=== PATIENT | female | born 1950 | race Caucasian/White ===

== ENCOUNTER 2020-01-23 14:40 | Outpatient (CLI) | payer OTHER, SELFPAY ==
--- NOTE | ~2020-01-23 | CT_ITS ---
EXAMINATION: CT lung screening DATE: 01/23/2020 16:19 INDICATION: Personal history of tobacco dependence, current smoker with 50 pack year history TECHNIQUE: Computed tomography (CT) of the chest was performed without intravenous contrast. The dose -length product (DLP) was 122.66 mGy-cm. Automated exposure control and iterative reconstruction tech Roamler were employed. COMPARISON: 12/31/2018 FINDINGS: No suspicious pulmonary nodules are identified. There is mild emphysema. The lungs are free of acute opacities. There is chronic mild atelectasis of the right middle lobe and lingula. No patho logically enlarged thoracic lymph nodes are identified. The heart size is normal. There is moderate t horacic spondylosis. Again noted are partially imaged cyst of the kidneys, measuring up to 10 cm on t he right. IMPRESSION: 1. Lung-RADS category 1: Negative. Continue annual screening with noncontrast low-dose chest CT in 12 months. Reviewed, dictated and finalized at location A. IMPRESSION: 1. Lung-RADS category 1: Negative. Continue annual screening with noncontrast l ow-dose chest CT in 12 months.
== END 2020-01-23 14:41 | disposition home or self-care (01) ==
LOC: ANHIMG 14:44
PROVIDERS: PCP Internal Medicine; Visit Provider Internal Medicine
DX: Z12.2 Encounter for screening for malignant neoplasm of respiratory organs (principal); Z87.891 Personal history of nicotine dependence
CPT/HCPCS: G0297

== ENCOUNTER 2020-06-09 09:51 | Observation (INO) | payer OTHER, SELFPAY ==
--- NOTE | ~2020-06-09 | CT_ITS ---
EXAMINATION: CTA brain carotid EXAM DATE: 06/09/2020 14:01 INDICATION: Sudden onset dizziness, right-sided hemiparesis. TECHNIQUE: Spiral CTA of the carotid arteries was performed with intravenous injection 100 cc of Om nipaque 350. Axial, coronal, sagittal reformatted images reviewed. Additional reformatted images cre ated on dedicated 3-D workstation. NASCET comparable standard used to assess the degree of arterial stenosis. Spiral CT angiogram cerebral arteries performed with the same intravenous injection of con trast. Source images of the brain CTA transferred to dedicated workstation for 3-D rotational image c reation. Coronal, sagittal maximum intensity pixel images also reviewed. The dose-length product (D LP) for this examination was 954.18 mGy-cm. The exposure was tailored according to patient size, an d iterative reconstruction (ASIR) was used as additional dose reduction technique. Correlation is mad e to head CT earlier same day. FINDINGS: There is mild bilateral carotid plaque with 0% stenosis bilaterally. There is bilateral car otid tortuosity, with kinking of both carotid arteries. There is mild to moderate scattered bilateral carotid siphon arterial sclerosis without stenosis. The vertebral arteries are codominant. Transvers e sinus arachnoid granulations. There is no carotid or vertebral basilar arterial dissection or fibr omuscular dysplasia. There are no cerebral artery aneurysms. There is symmetric cerebral artery arbor ization. The sagittal, transverse and sigmoid sinuses enhance normally, no venous sinus thrombosis. I nternal cerebral veins also enhance normally. Moderate lower cervical disc disease. Lung apices clear . IMPRESSION: 1. Scattered carotid plaque, 0% stenosis bilaterally. 2. Internal carotid artery tortuosity, kinking bilaterally. 3. No acute findings. Reviewed, dictated and finalized at location B.
--- NOTE | ~2020-06-09 | MR_ITS ---
EXAMINATION: MR brain/brain stem wo/w con DATE: 06/09/2020 16:15 INDICATION: Right-sided weakness/dizziness. TECHNIQUE: Magnetic resonance imaging (MRI) of the brain and brainstem was performed without and with 15 mL Multihance intravenous contrast. Sequences included sagittal and axial T1-weighted SE, axial d iffusion-weighted FS SE, axial T2*-weighted GRE, axial T2-weighted FLAIR, and axial T2-weighted FSE. Postcontrast axial and coronal T1-weighted SE was obtained. Apparent diffusion coefficient (ADC) maps were created. COMPARISON: Head CT and cerebral CT angiogram dated 06/09/2020 FINDINGS: There are no areas of restricted diffusion to suggest acute infarction. No intracranial hemorrhage or abnormal intracranial mass lesion. There are scattered areas of nonspecific increased T2-weighted si gnal intensity in the cerebral white matter, predominantly involving the deep and periventricular whi te matter. There are no intraparenchymal signal abnormalities seen on the other pulse sequences. Symm etric prominence of the sulci and subarachnoid spaces overlying the convexities consistent with mild age-appropriate diffuse cerebral volume loss. The ventricles are symmetric and normal in size. There are no abnormal extra-axial fluid collections. Flow voids are seen in the cerebral arteries on the T2 -weighted sequences consistent with their expected patency. Mucous retention cysts are seen at the in ferior aspect of the bilateral maxillary sinuses. Visualized orbits and soft tissues are unremarkable . There are no areas of abnormal enhancement on the post contrast images. IMPRESSION: 1. No acute intracranial process or abnormally enhancing brain lesions. 2. Age-related changes including mild diffuse volume loss and moderate scattered nonspecific perivent ricular predominant white matter T2 hyperintensity consistent with chronic small vessel ischemic dise ase. Reviewed, dictated and finalized at location A. IMPRESSION: 1. No acute intracranial process or abnormally enhancing brain lesions. 2. Age-related changes including mild diffuse volume loss and moderate scattere d nonspecific periventricular predominant white matter T2 hyperintensity consis tent with chronic small vessel ischemic disease.
--- NOTE | ~2020-06-09 | XR_ITS ---
XR chest 1V DATE: 06/09/2020 10:34 INDICATION: Dizziness. Right-sided weakness. TECHNIQUE: AP chest COMPARISON: 01/23/2020 CT lung screening 01/29/2019 2 view chest FINDINGS: Heart size There is aortic calcification, ectasia and unfolding. No hilar or mediastinal enlargement. No pulmonary infiltrate or consolidation, pleural effusion or pulmonary vascular congestion or pneumo thorax. IMPRESSION: No active pulmonary disease Reviewed, dictated and finalized at location A. IMPRESSION: No active pulmonary disease
--- NOTE | ~2020-06-09 | CT_ITS ---
EXAMINATION: CT brain wo con EXAM DATE: 06/09/2020 10:34 INDICATION: Dizziness. TECHNIQUE: Spiral CT of the head was performed without contrast. Axial, coronal and sagittal images were reviewed. The dose-length product (DLP) for this examination was 605.33 mGy-cm. The exposure w as tailored according to patient size, and iterative reconstruction (ASIR) was used as additional dos e reduction technique. There is no prior study for comparison. FINDINGS: There is no acute intraparenchymal hemorrhage. No evidence of intraparenchymal brain mass lesion. No evidence of acute infarction. Please note that initial head CT has limited sensitivity f or small or acute infarctions. There is moderate periventricular and subcortical hypodensity, nonspec ific but probably related to small vessel ischemic disease. There is moderate prominence of the sul ci and ventricles related to cerebral atrophy. There is intracranial carotid arteriosclerosis. The re are no extra-axial collections. There is no mass effect or midline shift. The orbits are unremar kable. Soft tissue is unremarkable. The visualized sinuses and mastoid air cells are well aerated. IMPRESSION: 1. No acute intracranial findings. 2. Chronic age related findings. Reviewed, dictated and finalized at location B.
--- NOTE | 2020-06-09 09:52 | ECG_ITS ---
Measurements Intervals [place] Rate: 91 P: 40 OR: 213 QRS: 27 QRSD: 81 T: 29 QT: 360 QTc: 444 Interpretive Statements SINUS RHYTHM WITH FIRST DEGREE AV BLOCK DELAYED PRECORDIAL R/S TRANSITION MINIMAL Q WAVES- LATERAL LEADS INFERIOR INFARCT, AGE INDETERMINATE ABNORMAL ECG Electronically Signed On 06-09-2020 10:41:28 CDT by Robi Rg D.O.
--- NOTE | 2020-06-09 09:55 | ED.DIZZY ---
HPI - Dizziness General Chief Complaint: Dizziness Stated Complaint: SUDDEN ONSET DIZZINESS Time Seen by Provider: 06/09/20 09:55 Source: patient Mode of arrival: ambulatory Limitations: no limitations History of Present Illness HPI Narrative: Patient is a 69-year-old female with a history of hypertension, mild COPD, who presents for evaluation of acute onset dizziness, mild right-sided weakness. Patient states that she was in the kitchen, made a sudden turning motion and had acute onset of dizziness. Patient states she had a short sensation that the room was spinning, but then felt as if her right arm was tingling, and had some mild weakness in her right leg. Patient has been ambulatory. She states dizziness is somewhat improved. She denies vision changes, headache or neck pain. No chest pain, cough or shortness of breath. Patient has been having quarantining since November, they do not leave the house even to get groceries, states these are delivered to them. No recent fever, cough or cold or illnesses. No recent sick contacts. Patient does not have a history of a stroke. She is compliant with her antihypertensives. She does smoke. She does also follow with Dr. Tate, phlebotomy for polycythemia. Related Data Allergies Allergy/AdvReac Type Severity Reaction Status Date / Time codeine Allergy Unknown Other Verified 06/01/20 12:49 Review of Systems Review of Systems: Narrative: CONSTITUTIONAL: Denies fever, chills, or sweats. EYES: Denies visual changes ENT: Denies rhinorrhea, congestion, sore throat, or otalgia. CARDIOVASCULAR: Denies chest pain, palpitations, or edema. RESPIRATORY: Denies cough or dyspnea. GASTROINTESTINAL: Denies abdominal pain, nausea, vomiting, or diarrhea. GENITOURINARY: Denies dysuria or hematuria. SKIN: Denies rash or itching. MUSCULOSKELETAL: Denies back pain, joint pain, or myalgia. NEUROLOGIC: Denies headache, reports tingling of the right upper extremity, mostly resolved, reports feeling mildly weak in the right lower leg. No severe dizziness currently. PMF Past Medical History Medical History Anxiety Cardiac murmur Chronic bronchitis Erythrocytosis Essential (primary) hypertension Mitral valve disorder Nocturnal hypoxemia Polycythemia Tobacco use Social History Social History Smoking status: Current every day smoker Alcohol intake: current Exam Narrative: Exam Narrative: GENERAL: Awake, alert, conversant HEAD: Normocephalic, atraumatic. EYES: PERRLA and EOMI. ENT: Nares clear, no rhinorrhea or epistaxis. Mucous membranes moist. NECK: Supple. CHEST: No respiratory distress, breathing even and non labored HEART: Regular rate, sinus rhythm ABDOMEN:Non distended, non tender EXTREMITIES: Normal range of motion. No edema. SKIN: Warm, dry, no rash. NEURO:No focal deficits. Alert and oriented x3. Finger to nose intact bilaterally. EOMs intact without nystagmus. No facial droop/asymmetry noted bilaterally. Grimace intact. Intact sensation in face. Hearing intact bilaterally. Shoulder shrug intact. Strength 5/5 bilateral upper extremities. Strength 5/5 bilateral lower extremities. Reflexes 2+ patellar. Heel to cordova intact bilaterally. Ambulatory with a narrow base, steady gait, mild drifting to the right. Course Vital Signs Vital signs: Vital Signs Temperature 36.6 C 06/09/20 09:58 Pulse Rate 93 06/09/20 09:58 Respiratory Rate 16 06/09/20 09:58 Blood Pressure 163/95 H 06/09/20 09:58 Pulse Oximetry 96 06/09/20 09:58 Temperature 36.6 C 06/09/20 09:58 Pulse Rate 93 06/09/20 09:58 Respiratory Rate 16 06/09/20 09:58 Blood Pressure 163/95 H 06/09/20 09:58 Pulse Oximetry 96 06/09/20 09:58 MDM - Dizziness MDM Narrative Medical decision making narrative: Patient presented for evaluation dizziness, slight tingling in right arm and slight right lower leg weakness. Patient is ambulatory without an
[2020-06-09 09:58] VITALS: BP 163/95; PULSE 93; RESP 16; TEMP 36.6; O2SAT 96
[2020-06-09 10:14] LABS: Basophils Percent Auto 0.5 % (0.2-1.2); Hematocrit 52.2 % (37.0-47.0); Hemoglobin 17.6 g/dL (12.0-15.0); Immature Granulocyte Absolute 0.01 K/mm3 (0.00-0.031); Immature Granulocyte Percent A 0.2 % (0-0.5); Lymphocytes Percent Auto 32.1 % (18.3-44.2); Mean Corpuscular HGB Conc 33.7 g/dl (32-36); Mean Corpuscular Hemoglobin 32.6 pg (26-34); Mean Corpuscular Volume 96.7 fl (80-100); Mean Platelet Volume 9.8 fl (7.4-10.4); Monocytes Absolute Auto 0.4 K/mm3 (0.1-0.6); Monocytes Percent Auto 9.9 % (2.6-8.5); Neutrophils Absolute Auto 2.5 K/mm3 (1.3-6.7); Neutrophils Percent Auto 57.3 % (45.5-73.1); Platelet Count Result 149 k/mm3 (150-375); Red Cell Distribution Width 13.9 % (11.5-14.5); White Blood Count 4.4 K/mm3 (4.5-10.0)
--- NOTE | 2020-06-09 10:17 | PC.NURSE ---
pt ambulatory to bathroom with assistance of . no veering of gait noted. states is some better than at home.
[2020-06-09] MEDS: SODIUM CHLORIDE 0.9% IV 1,000 ML 999 ML IV CONT (10:19)
[2020-06-09 10:31] LABS: Alanine Aminotransferase 25 U/L (4-35); Albumin Level 5.1 g/dL (3.5-5.1); Alkaline Phosphatase 117 U/L (38-126); Anion Gap 13 mmol/L (8-16); Aspartate Amino Transferase 33 U/L (14-36); Bilirubin,Total 0.8 mg/dL (0.2-1.3); Blood Urea Nitrogen 13 mg/dL (7-17); Calcium 10.6 mg/dL (8.4-10.2); Carbon Dioxide 29 mmol/L (22-30); Chloride 102 mmol/L (98-107); Estimated CRCL calculation 53 ml/min; Estimated Glomerular Filt Rate > 60; Glucose 123 mg/dL (65-105); Sodium 144 mmol/L (137-145)
[2020-06-09 10:32] LABS: Add Urine Microscopic? NO; Appearance Urine Clear (Clear); Bilirubin Urine Negative (Negative); Blood Urine Negative (Negative); Color Urine Yellow (Yellow); Glucose Urine UA Negative (Negative); Ketones Urine Negative (Negative); Leukocyte Esterase Ur Negative LEU/UL (Negative); Nitrate Urine Negative (Negative); Protein Urine Negative (Negative); Specific Grav Ur 1.009 (1.001-1.035); Urobilinogen Urine Negative mg/dL (<2.0)
[2020-06-09 10:32] LABS: Prothrombin Time 12.5 Seconds (11.1-14.7)
[2020-06-09 10:33] LABS: Partial Thromboplastin Time 30.1 SECONDS (22.3-36.8)
[2020-06-09] MEDS: MECLIZINE HCL 25 MG TABLET PO (10:39)
[2020-06-09 10:43] LABS: Troponin I < 0.012 ng/mL (0.000-0.034)
--- NOTE | 2020-06-09 14:10 | ADMGEN ---
This patient, Kvng Sanabria, was admitted to Medical Room 341-01. Patient/family oriented to hospital policies and general routines including ID bracelet, bed and alarms, visiting hours, pain management, procedures, bathroom and other care routines, personal items, smoking policy, room service/diet, and visiting hours. Valuables list has been completed. Information on how to activate the Rapid Response Team has been discussed. Patient/Family are encouraged to report perceived risks to care and to ask questions if they do not understand what they are told or what they should do.
[2020-06-09 14:17] VITALS: BP 126/68; PULSE 62; RESP 16; TEMP 37; O2SAT 98; BMI 28.5
[2020-06-09 17:48] VITALS: PULSE 60
[2020-06-09 19:52] VITALS: BP 126/72; PULSE 57; RESP 16; TEMP 37.2; O2SAT 97
[2020-06-09 20:00] VITALS: PULSE 57
--- NOTE | 2020-06-09 20:30 | PM.IMHP ---
H&P: HPI History of Present Illness Date/Time: 06/09/20 20:30 Chief complaint: Dizziness/right sided weakness/TIA Narrative: Kvng Sanabria is shabnam pleasant 69-year-old female smoker with history of what sounds like AVNRT, secondary polycythemia, chronic bronchitis, hypertension, and sleep apnea who presented to the emergency department earlier today from home for evaluation of dizziness. She was in her usual state of health when she woke this morning and went about her day. Not long prior to arrival, while standing indication drinking a cup of coffee, she developed sudden onset vertigo, with feelings as though she was being pushed or pulled to the right. She made her way into the living room using the slater and furniture to steady herself, and called her to come take her to the hospital. She also felt that perhaps her right leg felt a bit funny, but she cannot say for sure as she has residual paresthesias of her right lower leg since the spinal surgery many years ago. The vertigo seemed to be somewhat reproducible when turning her head to the right, but that is much improved after receiving meclizine in the emergency department. Additionally she reports feelings of irregular in racing heart, although she admits that she was feeling anxious due to the vertigo, and she goes on to say that given her history of AVNRT she will on occasion have episodes of pounding, racing heart. With further questioning she mentions occasional paresthesias throughout her face, but this does not seem to be new and is not a focal finding. She denies current headache, neck ache, auditory and visual changes, chest pain, pleuritic pain, current palpitations, nausea, vomiting, focal weakness, and sweats. Review of Systems Review of Systems: Narrative: Twelve systems were reviewed with pertinent positives and negatives as per HPI. No fever, chills, or sweats. No recent cold or flu-like symptoms. She denies sick contacts and recent travel. For many years she has had intermittent palpitations and racing heart, and was seen in the emergency department and was told that she had atrial fibrillation however after being evaluated by Dr. 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 She will have infrequent episodes of tachycardia that she is able to control with vagal maneuvers. No exertional chest pain, pleuritic pain, shortness of breath, or edema. Of note, she has secondary polycythemia and has therapeutic phlebotomy every 3 months, and is due for that at the end of June 2020. Mentions paresthesias of the left and 4th ring fingers which has been intermittent for quite some time. Except as documented, all other systems were reviewed and are negative. 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 Patient of Dr. Ovalles. Cardiac murmur Echocardiogram in August 2019 showed normal left ventricular systolic function, normal diastolic function, mild concentric left ventricular hypertrophy, ejection fraction of 65%, and mild mitral regurgitation. Chronic bronchitis Essential hypertension Obstructive sleep apnea Mild obstructive sleep apnea noted on sleep study on 05/07/2019. Secondary polycythemia Tobacco use Surgical History Surgical History History of discectomy L5-S1 diskectomy. History of salpingo-oophorectomy History of tonsillectomy History of tubal ligation Family History Family History Grandparent Hypertension Chronic obstructive pulmonary disease Dementia Father Chronic obstructive pulmonary disease Cancer Social History Social History (Updated 06/09/20 @ 21:55 by Nat Caceres PA-C) Social History: Surrogate decision maker: Servando Daniele, . Code status: Full code.
[2020-06-10] VITALS: PULSE 62
[2020-06-10 04:00] VITALS: PULSE 69
[2020-06-10 05:23] VITALS: BP 139/77; PULSE 76; RESP 16; TEMP 36.8; O2SAT 93
[2020-06-10 05:41] LABS: Basophils Percent Auto 0.2 % (0.2-1.2); Hematocrit 43.8 % (37.0-47.0); Hemoglobin 15.1 g/dL (12.0-15.0); Immature Granulocyte Absolute 0.02 K/mm3 (0.00-0.031); Immature Granulocyte Percent A 0.4 % (0-0.5); Lymphocytes Absolute Auto 1.52 K/mm3 (0.9-3.2); Mean Corpuscular HGB Conc 34.5 g/dl (32-36); Mean Corpuscular Volume 95.8 fl (80-100); Mean Platelet Volume 10.1 fl (7.4-10.4); Monocytes Absolute Auto 0.5 K/mm3 (0.1-0.6); Monocytes Percent Auto 9.7 % (2.6-8.5); Neutrophils Absolute Auto 3.2 K/mm3 (1.3-6.7); Neutrophils Percent Auto 60.7 % (45.5-73.1); Platelet Count Result 163 k/mm3 (150-375); Red Blood Count 4.57 M/mm3 (4.2-5.4); Red Cell Distribution Width 13.9 % (11.5-14.5); White Blood Count 5.2 K/mm3 (4.5-10.0)
[2020-06-10 05:58] LABS: Alanine Aminotransferase 17 U/L (4-35); Albumin Level 3.9 g/dL (3.5-5.1); Alkaline Phosphatase 73 U/L (38-126); Anion Gap 7 mmol/L (8-16); Aspartate Amino Transferase 24 U/L (14-36); Bilirubin,Total 0.6 mg/dL (0.2-1.3); Blood Urea Nitrogen 13 mg/dL (7-17); Calcium 9.2 mg/dL (8.4-10.2); Carbon Dioxide 28 mmol/L (22-30); Chloride 107 mmol/L (98-107); Cholesterol 150 mg/dL (0-200); Estimated CRCL calculation 53 ml/min; Estimated Glomerular Filt Rate > 60; Glucose 93 mg/dL (65-105); HDL Direct 41 mg/dL; Magnesium 2.1 mg/dL (1.6-2.3); Potassium 3.7 mmol/L (3.4-5.0); Sodium 142 mmol/L (137-145); Triglycerides 103 mg/dL (<150)
[2020-06-10 06:09] LABS: LDL Cholesterol Direct 94 mg/dL
[2020-06-10 07:34] LABS: Free T4 Free Thyroxine Reflex 1.07 ng/dL (0.78-2.19)
[2020-06-10 08:00] VITALS: PULSE 94
[2020-06-10] MEDS: CHOLECALCIFEROL 1,000 UNITS TABLET 5000 UNITS PO (08:32)
[2020-06-10] MEDS: ASCORBIC ACID 500 MG TABLET 1000 MG BY MOUTH (08:32)
[2020-06-10] MEDS: ASPIRIN 325 MG TABLET PO (08:32)
[2020-06-10] MEDS: VITAMIN B COMPLEX CAPSULE 1 CAP BY MOUTH (08:32)
[2020-06-10] MEDS: dilTIAZem HCL CD 180 MG CAP.ER.24H 360 MG BY MOUTH (08:33)
[2020-06-10 09:32] LABS: Folic Acid > 20.0 ng/mL (2.76->20)
[2020-06-10 12:00] VITALS: PULSE 87
[2020-06-10 12:02] LABS: Total Triiodothyronine (T3) 1.43 NG/ML (0.97-1.69)
--- NOTE | 2020-06-10 12:27 | WPDNEURCNPN ---
Assessment and Plan Assessment and plan (1) Essential hypertension: Code(s): I10 - Essential (primary) hypertension Status: Acute (2) Secondary polycythemia: Code(s): D75.1 - Secondary polycythemia Status: Acute (3) Dizziness: Code(s): R42 - Dizziness and giddiness Status: Acute Additional Plan continue with the medications such including aspirin Consult date: 06/10/20 Time Seen: 11:45 HPI: Kvng Sanabria is a 69 year old female admitted to the hospital with the ongoing complaint of right-sided weakness and dizziness in addition to the ongoing history of 1. Chronic bronchitis 2. Hypertension 3. Sleep apnea 4. Polycythemia not long before arrival while standing and drinking cup of coffee she developed sudden onset of vertigo and as if she was being pushed or pulled to the right side at the same time her right lower extremity felt somewhat funny mushy has also undergone spinal surgery many years ago and has been left with right lower extremity paresthesia her vertigo was improved by the time she was seen by the initial physician she does have ongoing history of anxiety AV ifeoma reentry tachycardia with cardiac murmur essential hypertension and obstructive sleep apnea in addition to polycythemia evaluation up until now reveals her to have fairly normal lab, MRI with the nonspecific chronic ischemic disease, negative CTA of the head and neck Review of Systems Review of Systems: All systems reviewed & are unremarkable except as noted in HPI and below PMFSH Past Medical History Medical History Anxiety AV ifeoma re-entry tachycardia On diltiazem for rate control. Patient of Dr. Ovalles. Cardiac murmur Echocardiogram in August 2019 showed normal left ventricular systolic function, normal diastolic function, mild concentric left ventricular hypertrophy, ejection fraction of 65%, and mild mitral regurgitation. Chronic bronchitis Essential hypertension Obstructive sleep apnea Mild obstructive sleep apnea noted on sleep study on 05/07/2019. Secondary polycythemia Tobacco use Surgical History Surgical History History of discectomy L5-S1 diskectomy. History of salpingo-oophorectomy History of tonsillectomy History of tubal ligation Family History Family History Grandparent Hypertension Chronic obstructive pulmonary disease Dementia Father Chronic obstructive pulmonary disease Cancer Social History Social History (Updated 06/09/20 @ 21:55 by Nat Caceres PA-C) Social History: Surrogate decision maker: Servando Sanabria, . Code status: Full code. Smoking packs per day: 1 Smoking cigarettes per day: 20.0 Years smoked: 45 Smoking pack-years: 45.00 Smoking status: Current every day smoker Tobacco type: cigarettes Additional smoking assessment comments: Smoked up to a pack of cigarettes per day, now smoking 1/4 a pack per day. Alcohol intake: never Substance use: never Additional living arrangements comments: Lives in [place] with her . Spiritual care concerns: No Meds Home Medications and Allergies Home Medications Medication Instructions Recorded Confirmed Type umeclidinium 62.5 mcg-vilanterol 1 inhalation INHALATION Q24H #60 12/10/19 06/09/20 Rx 25 mcg/actuation powdr for each inhalation alprazolam 0.25 mg tablet 0.25 mg PO BID PRN #60 tablet 04/15/20 06/09/20 Rx B Complex-Vitamin B12 1 tab-cap DAILY 06/09/20 06/09/20 History ascorbic acid (vitamin C) [Vitamin 1,000 mg DAILY 06/09/20 06/09/20 History C] aspirin 325 mg PO DAILY 06/09/20 06/09/20 History cholecalciferol (vitamin D3) 125 mcg PO DAILY 06/09/20 06/09/20 History [Vitamin D3] diltiazem HCl 360 mg DAILY 06/09/20 06/09/20 History Allergies Allergy/AdvReac Type Severity Reaction Status Date / Time codeine Allergy Unknown Othe
--- NOTE | 2020-06-10 12:30 | PM.DS ---
DS: Admitting Diagnosis Admitting Diagnosis Admitting Diagnosis: Dizziness/right sided weakness/TIA DS: Discharge Diagnosis Discharge Diagnosis (1) Multiple neurological symptoms: Code(s): R29.90 - Unspecified symptoms and signs involving the nervous system Status: Acute Assessment and Plan: Date of Admission 06/09/20 Date of Discharge/DOS 06/10/20 Ms. Sanabria is a 69yo F smoker with history of AVNRT, polycythemia, chronic bronchitis, hypertension and sleep apnea who presented to the ED for evaluation of dizziness. She described a sudden onset of dizziness not long prior to arrival, felt as if the room was spinning. She had trouble ambulating and used the furniture to help steady herself. brought her to ED with concern for stroke. Her dizziness improved in the ED after receiving meclizine. Workup including CTA head/neck and MRI brain were unremarkable and demonstrated no evidence of CVA, aneurysm, mass or other etiology to explain her symptoms. Differential includes benign paroxysmal positional vertigo and TIA. She also described that she has been having intermittent pins and needles sensation to JONNA face, only when she touches it. This is not a new symptom for her yet etiology remains unclear. She was evaluated by neurology and can follow up with Dr Pepper in the future if she desires. She follows with Dr Tate for polycythemia for therapeutic phlebotomy every 3 months. He was able to see her while she was admitted and she will keep her upcoming appointment with him in 2 weeks. Overall, her dizziness was resolved and she was feeling back at her baseline. She was hemodynamically stable for discharge 06/10/20 with instructions to follow up with PCP in 1 week. Consultations: - Neurology - Dr Pepper - Hematology - Dr Tate (2) Secondary polycythemia: Code(s): D75.1 - Secondary polycythemia Status: Acute (3) Essential hypertension: Code(s): I10 - Essential (primary) hypertension Status: Acute (4) Tobacco use: Code(s): Z72.0 - Tobacco use Status: Acute (5) Obstructive sleep apnea: Code(s): G47.33 - Obstructive sleep apnea (adult) (pediatric) Status: Acute (6) AV ifeoma re-entry tachycardia: Code(s): I47.1 - Supraventricular tachycardia Status: Acute Assessment and Plan: History of. No acute issues here. DS: Summary Time Spent with Patient Time attestation: Total time spent providing and/or coordinating discharge services: 35 minutes Exam Narrative: Exam Narrative: General: Female resting comfortably sitting up in bed in no acute distress. HEENT: Normocephalic, atraumatic. Wearing corrective lenses. PERRL, EOMI. Sclerae anicteric. Oral mucosa moist. Oropharynx clear. Respiratory: Lung clear to auscultation in all cavazos. Nonlabored breathing. Cardiovascular: Rate and rhythm regular. Soft systolic murmur heard over left sternal border. Gastrointestinal: Abdomen is soft, nontender, and nondistended with positive bowel sounds. Skin: Warm and dry. No rashes or lesions noted. Extremities: Peripheral pulses intact. No edema. Musculoskeletal: Diminished sensation with reported tingling of the ulnar side of the left 4th finger and left 5th finger with positive Tinel sign over the left ulnar nerve. Neurological: Alert and oriented x4. Cranial nerves 2-12 are grossly intact. Speech is clear. No facial asymmetry. No pronator drift. Normal [id number], [id number], and rapid alternating movements. Strength is 5/5 in upper and lower extremities. No gross focal deficits to casual conversation. Psychiatric: Pleasant and cooperative with normal mood and affect. Judgment and insight intact. DS: Data Data Completed and Pending Labs on day of discharge: Last Vital Signs Temp 98.2 F 06/10/20 05:23 Pulse 87 06/10/20 12:00 Resp 16 06/10/20 05:23 BP 139/77 06/10/20 05:23 Pulse Ox 93 06/10/20 05:23 ITS Impressio
--- NOTE | 2020-06-10 16:33 | PDONCCN ---
HPI - Date of Consult Date/Time: 06/10/20 16:33 Requesting Physician: Ana María Gloria MD Primary Care Provider: Partha Medina MD - Consult Narrative Reason for consult: Erythrocytosis. 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 She has been getting periodic phlebotomy done in the loss will blood me was on April 06, 2020. She came to the hospital with sudden onset of dizziness and vertigo. Brain MRI showed no acute intracranial process. She received meclizine the ER with improvement in the symptoms. Labs initially showed elevated hematocrit of 52 but the repeat labs showed normal hematocrit of 43%. She denies any chest pain. No more were typed when dizziness. Denies any bleeding or bruising. She continues to smoke. No other new complaints. Review of Systems - Review of Systems All systems reviewed & are unremarkable except as noted in HPI and [facility] Medical History: Medical History (This Medical Record has been edited. 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 Patient of Dr. Ovalles. Cardiac murmur Echocardiogram in August 2019 showed normal left ventricular systolic function, normal diastolic function, mild concentric left ventricular hypertrophy, ejection fraction of 65%, and mild mitral regurgitation. Chronic bronchitis Essential hypertension Obstructive sleep apnea Mild obstructive sleep apnea noted on sleep study on 05/07/2019. Secondary polycythemia Tobacco use Surgical History: Surgical History (Last Reviewed 06/09/20 @ 21:55 by Nat Caceres PA-C) History of discectomy L5-S1 diskectomy. History of salpingo-oophorectomy History of tonsillectomy History of tubal ligation Family History: Family History (Last Reviewed 06/09/20 @ 21:55 by Nat Caceres PA-C) Grandparent Hypertension Chronic obstructive pulmonary disease Dementia Father Chronic obstructive pulmonary disease Cancer - Social History Social History: Social History (Last Updated 06/09/20 @ 21:55 by Nat Caceres PA-C) Alcohol Use: Alcohol intake: never Substance Use: Substance use: never Others: Spiritual care concerns: No Smoking Status: Smoking status: Current every day smoker Tobacco type: cigarettes Smoking Pack-years: Smoking packs per day: 1 Smoking cigarettes per day: 20.0 Years smoked: 45 Smoking pack-years: 45.00 Comments: Additional smoking assessment comments: Smoked up to a pack of cigarettes per day, now smoking 1/4 a pack per day. Meds Home Medications Medication Instructions Recorded Confirmed Type umeclidinium 62.5 mcg-vilanterol 1 inhalation INHALATION Q24H #60 12/10/19 06/09/20 Rx 25 mcg/actuation powdr for each inhalation alprazolam 0.25 mg tablet 0.25 mg PO BID PRN #60 tablet 04/15/20 06/09/20 Rx B Complex-Vitamin B12 1 tab-cap DAILY 06/09/20 06/09/20 History ascorbic acid (vitamin C) [Vitamin 1,000 mg DAILY 06/09/20 06/09/20 History C] aspirin 325 mg PO DAILY 06/09/20 06/09/20 History cholecalciferol (vitamin D3) 125 mcg PO DAILY 06/09/20 06/09/20 History [Vitamin D3] diltiazem HCl 360 mg DAILY 06/09/20 06/09/20 History meclizine 12.5 mg PO QID PRN #30 tablet 06/10/20 Rx Allergies Allergy/AdvReac Type Severity Reaction Status Date / Time codeine Allergy Unknown Other Verified 06/01/20 12:49 Results - Labs CBC & Chem 7: 06/10/20 05:20 06/10/20 05:20 Labs: Short CBC 06/10/20 Range/Units 05:20 WBC 5.2 (4.5-10.0) K/mm3 Hgb 15.1 H (12.0-15.0) g/dL Hct 43.8 (37.0-47.0) % Plt Count 163 (150-375) k/mm3 BMP 06/10/20 05:20 Sodium 142 Potassium 3.7 Chloride 107 Carbon Dioxide 28 BUN 13 Creatinine 0.90 Glucose 93 Calcium 9.2 Liver Function 06/10/20 Range/Units 05:20 Total
== END 2020-06-10 13:24 | disposition home or self-care (01) ==
LOC: ANHED 12:38 → ANH3MED 13:50
PROVIDERS: Physician Assistant; Admitting Provider Family Medicine; Emergency Provider Emergency Medicine; PCP Internal Medicine; Visit Provider Family Medicine
DX: R42 Dizziness and giddiness (principal); I47.1 Supraventricular tachycardia; G81.91 Hemiplegia, unspecified affecting right dominant side; D75.1 Secondary polycythemia; F17.210 Nicotine dependence, cigarettes, uncomplicated; G47.33 Obstructive sleep apnea (adult) (pediatric); I10 Essential (primary) hypertension; J44.9 Chronic obstructive pulmonary disease, unspecified; R29.90 Unspecified symptoms and signs involving the nervous system
CPT/HCPCS: 36415; 70450; 70496; 70498; 70553; 71045; 80053; 80061; 81003; 82607; 82746; 82948; 83735; 84439; 84443; 84480; 84484; 85025; 85610; 85730; 93005; 96361; 96374; 99285; A9270; A9577; G0378; J0131; J2405; J7030; Q9967

== ENCOUNTER → 2020-12-08 10:17 | Outpatient (CLI) | payer OTHER, SELFPAY ==
--- NOTE | ~2020-12-08 | MM_ITS ---
EXAMINATION: MM screening [place] BI w vinayak HISTORY: Screening mammogram TECHNIQUE: Craniocaudal and mediolateral oblique 3-D tomosynthesis images were obtained and synthetic 2-D images were generated. CAD analysis was submitted and interpreted. COMPARISON: 02/08/2019, , 09/29/2016 bilateral digital screening mammogram examinations BREAST PARENCHYMAL COMPOSITION: The breasts are almost entirely fatty. FINDINGS: There is no evidence of suspicious mass, calcification, or architectural distortion to sugg est malignancy in either breast. There has been no suspicious interval change. IMPRESSION: 1. No mammographic evidence of malignancy. 2. Recommend routine screening mammography in one year. BI-RADS Category 1: Negative Reviewed, dictated and finalized at location A.
== END ==
PROVIDERS: PCP Internal Medicine; Visit Provider Obstetrics & Gynecology
DX: Z12.31 Encounter for screening mammogram for malignant neoplasm of breast (principal)
CPT/HCPCS: 77063; 77067

== ENCOUNTER 2021-02-11 14:36 | Outpatient (CLI) | payer OTHER, SELFPAY ==
--- NOTE | ~2021-02-11 | CT_ITS ---
EXAMINATION: CT lung screening DATE: 02/11/2021 14:59 INDICATION: History of tobacco dependence TECHNIQUE: Computed tomography (CT) of the chest was performed without intravenous contrast. The dose -length product was 134.82 mGy-cm. Automated exposure control and iterative reconstruction technique were employed. COMPARISON: CT dated 01/23/2020 FINDINGS: No significant pleural or pericardial effusion. There is atherosclerosis of the aorta and c oronary arteries. Heart size normal. There are multiple bilateral renal cysts.. No thoracic lymphaden opathy. Mild emphysema. No endobronchial lesions. There is right middle lobe atelectasis. No pulmonar y nodules or masses. Moderate thoracic spondylosis. No acute osseous abnormality. IMPRESSION: 1. Lung-RADS category 1: Negative. Continue annual screening with noncontrast low-dose chest CT in 12 months. Reviewed, dictated and finalized at location B. IMPRESSION: 1. Lung-RADS category 1: Negative. Continue annual screening with noncontrast l ow-dose chest CT in 12 months.
== END 2021-02-11 14:37 | disposition home or self-care (01) ==
PROVIDERS: PCP Internal Medicine; Visit Provider Internal Medicine
DX: Z87.891 Personal history of nicotine dependence (principal); M47.814 Spondylosis without myelopathy or radiculopathy, thoracic region
CPT/HCPCS: 71271

== ENCOUNTER → 2021-03-11 08:56 | Outpatient (CLI) | payer OTHER, SELFPAY ==
--- NOTE | ~2021-03-11 | MR_ITS ---
EXAMINATION: MR lumbar spine wo con DATE: 03/11/2021 09:45 INDICATION: Lumbar radiculopathy. TECHNIQUE: Magnetic resonance imaging (MRI) of the lumbar spine was performed without intravenous con trast. Sequences included sagittal T2-weighted FSE, sagittal T2-weighted FS FSE, sagittal T1-weighted FSE, and axial T2-weighted FSE. COMPARISON: None. FINDINGS: There is 21 degrees levoscoliosis of lumbar spine. There is 3 mm anterolisthesis of L4 on L 5 and L5 on S1. There is mild chronic anterior wedging of T11 and T12 vertebral bodies. There is zandra rely decreased disc height from T10-T11 through L5-S1 with endplate remodeling. The distal spinal cor d signal intensity is normal. The conus medullaris is at T12-L1. There are cysts in the kidneys measu ring up to 5.9 cm on the left. The following disc levels are specifically discussed: L1-L2: The disc is bulging. There is mild bilateral facet joint osteoarthritis. There is moderate rig ht and mild left neural foraminal stenosis. There is mild central canal stenosis. L2-L3: The disc is bulging and has an annular fissure. There is severe bilateral facet joint osteoart hritis. There is severe right and moderate left neural foraminal stenosis. There is mild central williams l stenosis. L3-L4: The disc is bulging and has an annular fissure. There is severe bilateral facet joint osteoart hritis. There is moderate bilateral neural foraminal stenosis. There is moderate central canal stenos is. L4-L5: The disc is bulging and has an annular fissure. There is severe bilateral facet joint osteoart hritis. There is mild right and moderate left neural foraminal stenosis. There is mild central canal stenosis. There is asymmetric stenosis of left lateral recess. L5-S1: The disc does not extend beyond the endplate margin. There is severe left facet joint osteoart hritis. There is mild bilateral neural foraminal stenosis. There is no central canal stenosis. IMPRESSION: 1. Severe lumbar spondylosis. 2. Lumbar levoscoliosis. Reviewed, dictated and finalized at location A.
--- NOTE | ~2021-03-11 | XR_ITS ---
EXAMINATION: XR hip BI 2V w AP pelvis EXAM DATE: 03/11/2021 09:21 INDICATION: Bilateral hip pain. Bilateral posterior, lateral and groin hip pain. Chronic after low ba ck surg in 1990. worse x 6 months. TECHNIQUE: Each hip imaged independently (separate right and also left hip) 'frog leg' and frontal p rojections for interpretation. Frontal projection pelvis. There is no prior study for comparison. FINDINGS: No radiographic evidence of hip avascular necrosis. There is mild to moderate symmetric bi lateral hip primary osteoarthritis. There are no acute fractures or dislocations identified. There i s no subcutaneous gas. The soft tissue is unremarkable. There are no radiopaque foreign bodies. A dvanced lower lumbar spondylosis. IMPRESSION: Mild to moderate bilateral hip osteoarthritis. Reviewed, dictated and finalized at location B.
== END ==
PROVIDERS: PCP Internal Medicine; Visit Provider Nurse Practitioner Adult Health
DX: M47.817 Spondylosis without myelopathy or radiculopathy, lumbosacral region (principal); M48.07 Spinal stenosis, lumbosacral region
CPT/HCPCS: 72148; 73521

== ENCOUNTER → 2021-08-19 11:14 | Outpatient (CLI) | payer OTHER, SELFPAY ==
--- NOTE | ~2021-08-19 | XR_ITS ---
EXAMINATION: XR foot LT min 3V EXAM DATE: 08/19/2021 11:28 INDICATION: Left foot pain. TECHNIQUE: Left foot dorsoplantar, lateral and oblique projections obtained and reviewed. There is n o prior study for comparison. FINDINGS: Left metatarsal bones unremarkable. There are no bony erosions identified. Small inferior and posterior calcaneal spurs. Small amount of plantar fascial calcification. There is mild 1st meta tarsophalangeal joint primary osteoarthritis. Moderate hallux valgus. IMPRESSION: Left 1st MTP osteoarthritis, hallux valgus. Calcaneal spurs. Reviewed, dictated and finalized at location B. R LINEMAN
== END ==
PROVIDERS: PCP Internal Medicine; Visit Provider Internal Medicine
DX: M19.072 Primary osteoarthritis, left ankle and foot (principal); M21.072 Valgus deformity, not elsewhere classified, left ankle; M77.32 Calcaneal spur, left foot
CPT/HCPCS: 73630

== ENCOUNTER 2021-12-22 07:08 | Outpatient (CLI) | payer OTHER, SELFPAY ==
--- NOTE | ~2021-12-22 | US_ITS ---
EXAMINATION: US abdomen complete DATE: 12/22/2021 09:08 INDICATION: Intermittent abdominal pain and vomiting TECHNIQUE: Multiple grayscale and Doppler ultrasound images of the abdomen were obtained. COMPARISON: None FINDINGS: Increased echogenicity of the pancreas consistent with fatty atrophy as seen on prior CT of the chest dated 02/11/2021. Liver has normal echogenicity and contour, with a smooth surface. No liver lesion identified. No intrahepatic biliary duct dilation suspected. Portal venous flow was seen in the hepat opetal, normal direction and has normal Doppler waveform. The visualized proximal to mid inferior alda a cava is normal. Normal caliber abdominal aorta with small amount of nonhemodynamically significant atherosclerotic plaque. The gallbladder is normal in appearance. There is no cholelithiasis. The com mon bile duct measures 5 mm, which is normal. Sonographic Rascon sign was reported as negative by the bill of lading clerk. There is normal renal contour and echogenicity bilaterally. The right kidney measures c m and the left cm. There are multiple bilateral anechoic renal cysts, the largest measuring 8.4 cm on the right and 6.5 cm on the left. There is no hydronephrosis. Spleen is normal measuring 9.8 cm in m aximal length. IMPRESSION: 1. Fatty atrophy of the pancreas. 2. Multiple bilateral renal cysts. Reviewed, dictated and finalized at location A.
== END 2021-12-22 07:09 | disposition home or self-care (01) ==
LOC: ANHIMG 07:14
PROVIDERS: PCP Internal Medicine; Visit Provider Internal Medicine
DX: R10.9 Unspecified abdominal pain (principal); N28.1 Cyst of kidney, acquired; K86.89 Other specified diseases of pancreas
CPT/HCPCS: 76700

== ENCOUNTER 2022-01-25 00:44 | Day surgery (SDC) | payer OTHER, SELFPAY ==
[2022-01-12 10:43] VITALS: BMI 27.6
[2022-01-25 08:09] VITALS: BP 153/83; PULSE 97; RESP 16; TEMP 36.5; O2SAT 98
[2022-01-25] MEDS: LACTATED RINGERS 1,000 ML 150 ML IV CONT (08:17)
--- NOTE | 2022-01-25 08:47 | WPDANESEPPF ---
Anes - Initial Pre Proc Eval Procedure: Operation Date: 01/25/22 09:30 Proposed Procedures p Esophagogastroduodenoscopy - Ghanshyam Solis MD Date/Time: 01/25/22 08:47 Surgeon: Ghanshyam Solis MD Pre Op Diagnosis: GERD Patient Data Age: 71 Gender: F Height: 1.63 m Weight: 72.3 kg Last Vital Signs Temp 36.5 C 01/25/22 08:09 Pulse 97 01/25/22 08:09 Resp 16 01/25/22 08:09 BP 153/83 H 01/25/22 08:09 Pulse Ox 98 01/25/22 08:09 O2 Del Method Room Air 01/25/22 08:09 Allergies Allergy/AdvReac Type Severity Reaction Status Date / Time codeine Allergy Unknown Other Verified 01/25/22 08:09 Home Medications Medication Instructions Recorded Confirmed Type B Complex-Vitamin B12 1 tab-cap DAILY 06/09/20 01/25/22 History ascorbic acid (vitamin C) 1,000 mg 1,000 mg DAILY 06/09/20 01/25/22 History tablet (Vitamin C) cholecalciferol (vitamin D3) 125 125 mcg PO DAILY 06/09/20 01/25/22 History mcg (5,000 unit) tablet (Vitamin D3) aspirin 81 mg tablet,delayed 81 mg PO DAILY #1 tablet 08/07/20 01/25/22 Rx release cyclobenzaprine 5 mg tablet 5 mg PO TID PRN muscle spasm #30 08/19/21 01/25/22 Rx tabs gabapentin 100 mg capsule 100 mg PO QHS #30 caps 08/19/21 01/25/22 Rx umeclidinium 62.5 mcg-vilanterol See Rx Instructions .Route 08/19/21 01/25/22 Rx 25 mcg/actuation powdr for .COMPLEX ##60 inhalation (Anoro Ellipta) omeprazole 40 mg capsule,delayed 40 mg PO DAILY #90 caps 12/10/21 01/25/22 Rx release sertraline 25 mg tablet (Zoloft) 25 mg PO DAILY #30 tabs 12/10/21 01/25/22 Rx alprazolam 0.25 mg tablet 0.25 mg PO DAILY PRN anxiety #30 01/14/22 01/25/22 Rx tabs diltiazem HCl 360 mg capsule,24 See Rx Instructions .Route 01/14/22 01/25/22 Rx hr,extended release (Tiadylt ER) .COMPLEX #90 caps rosuvastatin 10 mg tablet See Rx Instructions .Route 01/14/22 01/25/22 Rx .COMPLEX #90 tabs Patient hx anesthesia problems: none Family hx anesthesia problems: none Results Review: All pre-operative results and documents have been reviewed as part of the pre-operative evaluation. 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 Patient of Dr. Ovalles. Cardiac murmur Echocardiogram in August 2019 showed normal left ventricular systolic function, normal diastolic function, mild concentric left ventricular hypertrophy, ejection fraction of 65%, and mild mitral regurgitation. Chronic bronchitis Essential hypertension Obstructive sleep apnea Mild obstructive sleep apnea noted on sleep study on 05/07/2019. Obstructive sleep apnea Secondary polycythemia Tobacco use Surgical History Surgical History History of discectomy L5-S1 diskectomy. History of salpingo-oophorectomy History of tonsillectomy History of tubal ligation Family History Family History Grandparent Hypertension Chronic obstructive pulmonary disease Dementia Father Chronic obstructive pulmonary disease Cancer Social History Social History Social History: Surrogate decision maker: Servando Sanabria, . Code status: Full code. Smoking packs per day: 0.5 Smoking cigarettes per day: 10.0 Years smoked: 30 Smoking pack-years: 15.00 Smoking status: Current every day smoker Tobacco type: cigarettes Second hand tobacco smoke exposure: Yes Additional smoking assessment comments: Smoked up to a pack of cigarettes per day, now smoking 1/4 a pack per day. Alcohol intake: never Alcohol use details: social Substance use: never Substance use type: does not use Living arrangements: with family Additional living arrangements comments: Lives in [place] with her . Spiritual care concerns: No Anes - Eval Final PreProcedure Day of Proce
--- NOTE | 2022-01-25 09:13 | WPDGICN ---
Assessment and Plan Assessment and plan (1) Vomiting: Code(s): R11.10 - Vomiting, unspecified Status: Acute Assessment and Plan: Patient complains of recurrent vomiting episodes that occur less than once a month these appear brief. Not related to specific dietary intake. EGD is requested will be reperformed today would recommend patient keep a dietary diary. Consider medications as possible contributing factor. Further recommendations may be given after endoscopy. GI Consult Note Consult date/time: 01/25/22 09:13 HPI: Kvng Sanabria is a 71 year old female Presents for EGD. Patient reports for several years has had intermittent vomiting. She states this occurs out of the blue. Not related to any particular dietary intake. It will occur less than 1 time a month. She states she will feel fine prior to this and will feel better after this occurs. She has had no bleeding. No weight loss. She denies abdominal pain. She does report irregular bowel movements and some bloating. Previously advised to try fiber supplements she has not yet implemented this. Recent gallbladder ultrasound revealed no gallstones. There was question of fatty pancreas. patient reports that when she vomits it is typically mucus. She has tried omeprazole with no change in symptoms. Family history noncontributory. Review of Systems Review of Systems: Review of systems is noncontributory. 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 Patient of Dr. Ovalles. Cardiac murmur Echocardiogram in August 2019 showed normal left ventricular systolic function, normal diastolic function, mild concentric left ventricular hypertrophy, ejection fraction of 65%, and mild mitral regurgitation. Chronic bronchitis Essential hypertension Obstructive sleep apnea Mild obstructive sleep apnea noted on sleep study on 05/07/2019. Obstructive sleep apnea Secondary polycythemia Tobacco use Surgical History Surgical History History of discectomy L5-S1 diskectomy. History of salpingo-oophorectomy History of tonsillectomy History of tubal ligation Family History Family History Grandparent Hypertension Chronic obstructive pulmonary disease Dementia Father Chronic obstructive pulmonary disease Cancer Social History Social History Social History: Surrogate decision maker: Servando Sanabria, . Code status: Full code. Smoking packs per day: 0.5 Smoking cigarettes per day: 10.0 Years smoked: 30 Smoking pack-years: 15.00 Smoking status: Current every day smoker Tobacco type: cigarettes Second hand tobacco smoke exposure: Yes Additional smoking assessment comments: Smoked up to a pack of cigarettes per day, now smoking 1/4 a pack per day. Alcohol intake: never Alcohol use details: social Substance use: never Substance use type: does not use Living arrangements: with family Additional living arrangements comments: Lives in [place] with her . Spiritual care concerns: No Meds Home Medications and Allergies Home Medications Medication Instructions Recorded Confirmed Type B Complex-Vitamin B12 1 tab-cap DAILY 06/09/20 01/25/22 History ascorbic acid (vitamin C) 1,000 mg 1,000 mg DAILY 06/09/20 01/25/22 History tablet (Vitamin C) cholecalciferol (vitamin D3) 125 125 mcg PO DAILY 06/09/20 01/25/22 History mcg (5,000 unit) tablet (Vitamin D3) aspirin 81 mg tablet,delayed 81 mg PO DAILY #1 tablet 08/07/20 01/25/22 Rx release cyclobenzaprine 5 mg tablet 5 mg PO TID PRN muscle spasm #30 08/19/21 01/25/22 Rx tabs gabapentin 100 mg capsule 100 mg PO QHS #30 caps 08/19/21 01/25/22 Rx umeclidinium 62.5 mcg-vilanterol See Rx Instructions .Route 08/19
== END 2022-01-25 10:15 | disposition home or self-care (01) ==
PROVIDERS: PCP Internal Medicine; Visit Provider Internal Medicine Gastroenterology
PROC: 0DJ08ZZ Inspection of Upper Intestinal Tract, Via Natural or Artificial Opening Endoscopic (ICD-10-PCS; CPT 43235; principal; 2022-01-25 09:30)
DX: R11.10 Vomiting, unspecified (principal); K25.3 Acute gastric ulcer without hemorrhage or perforation; F41.9 Anxiety disorder, unspecified; R00.0 Tachycardia, unspecified; R01.1 Cardiac murmur, unspecified; I10 Essential (primary) hypertension; G47.33 Obstructive sleep apnea (adult) (pediatric); D75.1 Secondary polycythemia; F17.210 Nicotine dependence, cigarettes, uncomplicated; K21.9 Gastro-esophageal reflux disease without esophagitis; Z79.82 Long term (current) use of aspirin
CPT/HCPCS: 43239; 88305; 88342; J2704; J7120

== ENCOUNTER → 2022-03-04 12:55 | Outpatient (CLI) | payer OTHER, SELFPAY ==
--- NOTE | ~2022-03-04 | MM_ITS ---
EXAMINATION: MM screening [facility] BI w vinayak HISTORY: Screening TECHNIQUE: Craniocaudal and mediolateral oblique 3-D tomosynthesis images were obtained and synthetic 2-D images were generated. CAD analysis was submitted and interpreted. COMPARISON: Comparison to multiple prior studies sequentially, with oldest reviewed study dated 09/24. . BREAST PARENCHYMAL COMPOSITION: There are scattered areas of fibroglandular density. FINDINGS: There is no evidence of suspicious mass, calcification, or architectural distortion to sugg est malignancy in either breast. There has been no suspicious interval change. IMPRESSION: 1. No mammographic evidence of malignancy. 2. Recommend routine screening mammography in one year. BI-RADS Category 1: Negative Reviewed, dictated and finalized at location A.
== END ==
PROVIDERS: PCP Internal Medicine; Visit Provider Student in an Organized Health Care Education/Training Program
DX: Z12.31 Encounter for screening mammogram for malignant neoplasm of breast (principal)
CPT/HCPCS: 77063; 77067

== ENCOUNTER 2022-03-11 14:39 | Outpatient (CLI) | payer OTHER, SELFPAY ==
--- NOTE | ~2022-03-11 | CT_ITS ---
EXAMINATION: CT lung screening DATE: 03/11/2022 15:01 INDICATION: Personal history of nicotine dependence, current smoker with 30 pack year history TECHNIQUE: Computed tomography (CT) of the chest was performed without intravenous contrast. The dose -length product (DLP) was 98.05 mGy-cm. Automated exposure control and iterative reconstruction techn [employer] were employed. COMPARISON: 02/11/2021 FINDINGS: There is mild emphysema. No suspicious pulmonary nodules are identified. The lungs are free of acute opacities. No pleural effusion or pneumothorax. No pathologically enlarged thoracic lymph n odes are identified. The heart size is normal. Cysts of the kidneys measure up to 8.1 cm on the right . There is severe thoracic spondylosis. IMPRESSION: 1. Lung-RADS category 1: Negative. Continue annual screening with noncontrast low-dose chest CT in 12 months. Reviewed, dictated and finalized at location B. IMPRESSION: 1. Lung-RADS category 1: Negative. Continue annual screening with noncontrast l ow-dose chest CT in 12 months.
== END 2022-03-11 14:40 | disposition home or self-care (01) ==
PROVIDERS: PCP Internal Medicine; Visit Provider Internal Medicine
DX: Z12.2 Encounter for screening for malignant neoplasm of respiratory organs (principal); Z87.891 Personal history of nicotine dependence
CPT/HCPCS: 71271

== ENCOUNTER 2022-04-18 05:00 | Day surgery (SDC) | payer OTHER, SELFPAY ==
[2022-04-04 09:10] VITALS: BMI 26.6
--- NOTE | 2022-04-18 08:12 | WPDANESEPPF ---
Anes - Initial Pre Proc Eval Procedure: Operation Date: 04/18/22 10:00 Proposed Procedures p Esophagogastroduodenoscopy - Ghanshyam Solis MD Date/Time: 04/18/22 08:12 Surgeon: Ghanshyam Solis MD Pre Op Diagnosis: gastric ulcer Patient Data Age: 71 Gender: F Height: 1.63 m Weight: 70.5 kg Allergies Allergy/AdvReac Type Severity Reaction Status Date / Time codeine Allergy Unknown Other Verified 04/18/22 09:17 Home Medications Medication Instructions Recorded Confirmed Type B Complex-Vitamin B12 1 tab-cap PO DAILY 06/09/20 04/04/22 History ascorbic acid (vitamin C) 1,000 mg 1,000 mg DAILY 06/09/20 04/04/22 History tablet (Vitamin C) cholecalciferol (vitamin D3) 125 125 mcg PO DAILY 06/09/20 04/04/22 History mcg (5,000 unit) tablet (Vitamin D3) aspirin 81 mg tablet,delayed 81 mg PO DAILY #1 tablet 08/07/20 04/04/22 Rx release diltiazem HCl 360 mg capsule,24 See Rx Instructions .Route 01/14/22 04/04/22 Rx hr,extended release (Tiadylt ER) .COMPLEX #90 caps rosuvastatin 10 mg tablet See Rx Instructions .Route 01/14/22 04/04/22 Rx .COMPLEX #90 tabs omeprazole 40 mg capsule,delayed 40 mg PO BID #60 caps 01/25/22 04/04/22 Rx release alprazolam 0.25 mg tablet 0.25 mg PO BID PRN anxiety #60 tabs 02/25/22 04/04/22 Rx sertraline 25 mg tablet (Zoloft) 25 mg PO DAILY #30 tabs 03/08/22 04/04/22 Rx cyclobenzaprine 5 mg tablet 5 mg PO TID PRN muscle spasm #30 03/25/22 04/04/22 Rx tabs umeclidinium 62.5 mcg-vilanterol 1 inh inhalation 1XD 04/04/22 04/04/22 History 25 mcg/actuation powdr for inhalation (Anoro Ellipta) Patient hx anesthesia problems: none Family hx anesthesia problems: none Results Review: All pre-operative results and documents have been reviewed as part of the pre-operative evaluation. 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 Patient of Dr. Ovalles. Cardiac murmur Echocardiogram in August 2019 showed normal left ventricular systolic function, normal diastolic function, mild concentric left ventricular hypertrophy, ejection fraction of 65%, and mild mitral regurgitation. Chronic bronchitis COPD (chronic obstructive pulmonary disease) Essential hypertension Obstructive sleep apnea Mild obstructive sleep apnea noted on sleep study on 05/07/2019. Obstructive sleep apnea CPAP Secondary polycythemia Stomach ulcer Tobacco use Surgical History Surgical History History of discectomy L5-S1 diskectomy. History of salpingo-oophorectomy History of tonsillectomy History of tubal ligation Family History Family History Grandparent Hypertension Chronic obstructive pulmonary disease Dementia Father Chronic obstructive pulmonary disease Cancer Social History Social History Social History: Surrogate decision maker: Servando Sanabria, . Code status: Full code. Smoking packs per day: 0.5 Smoking cigarettes per day: 10.0 Years smoked: 30 Smoking pack-years: 15.00 Smoking status: Light tobacco smoker Tobacco type: cigarettes Second hand tobacco smoke exposure: Yes Additional smoking assessment comments: Smoked up to a pack of cigarettes per day, now smoking 1/4 a pack per day. Alcohol intake: never Alcohol use details: social Substance use: never Substance use type: does not use Living arrangements: with family Additional living arrangements comments: Lives in [place] with her . Spiritual care concerns: No Anes - Eval Final PreProcedure Day of Procedure 04/18/22 08:12 Patient weight: overweight Heart: regular rate and rhythm Lungs: clear to auscultation Airway: Mallampati scale class II Neurological: alert and oriented Last oral intake: >/= 8 hours ASA classific
[2022-04-18 09:18] VITALS: BP 147/79; PULSE 85; RESP 18; TEMP 37; O2SAT 97
[2022-04-18] MEDS: LACTATED RINGERS 1,000 ML 150 ML IV CONT (09:33)
--- NOTE | 2022-04-18 10:00 | PM.IMHP ---
H&P: HPI History of Present Illness Date/Time: 04/18/22 10:00 Chief Complaint: History of gastric ulcers. Narrative: Is a 71-year-old white female patient complains of recurrent dry heaves. She vomits frequently. In January 2022 EGD confirmed multiple gastric ulcerations. Patient has been maintained on omeprazole 40mg p.o. b.i.d. subsequently. She denies any bleeding or abdominal pain. Continues to have episodes of dry heaves nausea vomiting cramping. Gallbladder ultrasound previously was unremarkable. She presents today for follow-up EGD to document healing of these ulcers. Review of Systems Review of Systems: Review of systems noncontributory. [facility] Past Medical History Medical History Anxiety AV ifeoma re-entry tachycardia On diltiazem for rate control. Patient of Dr. Ovalles. Cardiac murmur Echocardiogram in August 2019 showed normal left ventricular systolic function, normal diastolic function, mild concentric left ventricular hypertrophy, ejection fraction of 65%, and mild mitral regurgitation. Chronic bronchitis COPD (chronic obstructive pulmonary disease) Essential hypertension Obstructive sleep apnea Mild obstructive sleep apnea noted on sleep study on 05/07/2019. Obstructive sleep apnea CPAP Secondary polycythemia Stomach ulcer Tobacco use Surgical History Surgical History History of discectomy L5-S1 diskectomy. History of salpingo-oophorectomy History of tonsillectomy History of tubal ligation Family History Family History Grandparent Hypertension Chronic obstructive pulmonary disease Dementia Father Chronic obstructive pulmonary disease Cancer Social History Social History Social History: Surrogate decision maker: Servando Sanabria, . Code status: Full code. Smoking packs per day: 0.5 Smoking cigarettes per day: 10.0 Years smoked: 30 Smoking pack-years: 15.00 Smoking status: Light tobacco smoker Tobacco type: cigarettes Second hand tobacco smoke exposure: Yes Additional smoking assessment comments: Smoked up to a pack of cigarettes per day, now smoking 1/4 a pack per day. Alcohol intake: never Alcohol use details: social Substance use: never Substance use type: does not use Living arrangements: with family Additional living arrangements comments: Lives in [place] with her . Spiritual care concerns: No Meds Home Medications and Allergies Home Medications Medication Instructions Recorded Confirmed Type B Complex-Vitamin B12 1 tab-cap PO DAILY 06/09/20 04/04/22 History ascorbic acid (vitamin C) 1,000 mg 1,000 mg DAILY 06/09/20 04/04/22 History tablet (Vitamin C) cholecalciferol (vitamin D3) 125 125 mcg PO DAILY 06/09/20 04/04/22 History mcg (5,000 unit) tablet (Vitamin D3) aspirin 81 mg tablet,delayed 81 mg PO DAILY #1 tablet 08/07/20 04/04/22 Rx release diltiazem HCl 360 mg capsule,24 See Rx Instructions .Route 01/14/22 04/04/22 Rx hr,extended release (Tiadylt ER) .COMPLEX #90 caps rosuvastatin 10 mg tablet See Rx Instructions .Route 01/14/22 04/04/22 Rx .COMPLEX #90 tabs omeprazole 40 mg capsule,delayed 40 mg PO BID #60 caps 01/25/22 04/04/22 Rx release alprazolam 0.25 mg tablet 0.25 mg PO BID PRN anxiety #60 tabs 02/25/22 04/04/22 Rx sertraline 25 mg tablet (Zoloft) 25 mg PO DAILY #30 tabs 03/08/22 04/04/22 Rx cyclobenzaprine 5 mg tablet 5 mg PO TID PRN muscle spasm #30 03/25/22 04/04/22 Rx tabs umeclidinium 62.5 mcg-vilanterol 1 inh inhalation 1XD 04/04/22 04/04/22 History 25 mcg/actuation powdr for inhalation (Anoro Ellipta) Allergies Allergy/AdvReac Type Severity Reaction Status Date / Time codeine Allergy Unknown Other Verified 04/18/22 09:17 Vital Signs Vital Signs - 24 hr 04/18/22 09:18 Temperature 9
[2022-04-18 10:21] VITALS: BP 132/70; PULSE 74; RESP 20; O2SAT 96
[2022-04-18 10:31] VITALS: BP 103/65; PULSE 75; RESP 20; O2SAT 97
[2022-04-18 10:41] VITALS: BP 125/77; PULSE 72; RESP 18; O2SAT 97
== END 2022-04-18 10:50 | disposition home or self-care (01) ==
PROVIDERS: PCP Internal Medicine; Visit Provider Internal Medicine Gastroenterology
PROC: 0DJ08ZZ Inspection of Upper Intestinal Tract, Via Natural or Artificial Opening Endoscopic (ICD-10-PCS; CPT 43235; principal; 2022-04-18 10:00)
DX: R11.10 Vomiting, unspecified (principal); Z87.11 Personal history of peptic ulcer disease; J44.9 Chronic obstructive pulmonary disease, unspecified; I10 Essential (primary) hypertension; G47.33 Obstructive sleep apnea (adult) (pediatric); I47.1 Supraventricular tachycardia; F41.9 Anxiety disorder, unspecified; Z79.82 Long term (current) use of aspirin; Z79.51 Long term (current) use of inhaled steroids; F17.210 Nicotine dependence, cigarettes, uncomplicated
CPT/HCPCS: 43239; 87081; J2704; J7120

== ENCOUNTER → 2022-10-24 11:33 | Outpatient (CLI) | payer OTHER, SELFPAY ==
--- NOTE | ~2022-10-24 | XR_ITS ---
XR knee RT min 4V 10/24/2022 12:08 Indication: Chronic right knee pain Procedure: 4 views right knee Comparison: No prior studies for comparison. Findings: There is mild-moderate osteoarthritis. There is chondrocalcinosis. Small joint effusion. Os teopenia. No acute fracture or traumatic malalignment. Impression: 1: Mild-moderate tricompartmental osteoarthritis of the right knee. Reviewed, dictated and finalized at location B. WASHER Impression: 1: Mild-moderate tricompartmental osteoarthritis of the right knee.
== END ==
PROVIDERS: PCP Internal Medicine; Visit Provider Nurse Practitioner Family
DX: M17.11 Unilateral primary osteoarthritis, right knee (principal); M25.561 Pain in right knee
CPT/HCPCS: 73564

== ENCOUNTER → 2023-03-13 12:50 | Outpatient (CLI) | payer OTHER, SELFPAY ==
--- NOTE | ~2023-03-13 | CT_ITS ---
EXAMINATION:CT lung screening DATE: 03/13/2023 13:06 INDICATION: Nicotine dependence, cigarettes, uncomplicated. Current smoker with 45 pack year history. TECHNIQUE: Computed tomography (CT) of the chest was performed without intravenous contrast. Automate d exposure control and iterative reconstruction technique were employed. The dose-length product (DLP ) was 144.91 mGy-cm. COMPARISON: Chest CT 03/11/2022 FINDINGS: There is mild atelectasis bilaterally. No pleural effusion. The heart size is normal. There are coronary artery calcifications. No pericardial effusion. Aortic atherosclerosis is noted. There are no pathologically enlarged lymph nodes. There are cysts in the kidneys measuring up to 7.8 cm on the right. There is severe thoracic spondylosis. IMPRESSION: 1. Lung-RADS category 1: Negative. Continue annual screening with noncontrast low-dose chest CT in 12 months. Reviewed, dictated and finalized at location E. IMPRESSION: 1. Lung-RADS category 1: Negative. Continue annual screening with noncontrast l ow-dose chest CT in 12 months.
== END ==
PROVIDERS: PCP Nurse Practitioner Family; Visit Provider Nurse Practitioner Family
DX: F17.210 Nicotine dependence, cigarettes, uncomplicated (principal)
CPT/HCPCS: 71271

== ENCOUNTER 2023-04-12 12:42 | Outpatient (CLI) | payer OTHER, SELFPAY ==
[2023-04-12 12:56] LABS: Basophils Percent Auto 0.1 % (0.2-1.2); Eosinophils Percent Auto 0.1 % (0-4.4); Hematocrit 45.5 % (37.0-47.0); Hemoglobin 15.6 g/dL (12.0-15.0); Immature Granulocyte Absolute 0.03 K/mm3 (0.00-0.031); Immature Granulocyte Percent A 0.4 % (0-0.5); Lymphocytes Absolute Auto 1.28 K/mm3 (0.9-3.2); Lymphocytes Percent Auto 16.8 % (18.3-44.2); Mean Corpuscular HGB Conc 34.3 g/dl (32-36); Mean Corpuscular Hemoglobin 33.1 pg (26-34); Mean Corpuscular Volume 96.4 fl (80-100); Mean Platelet Volume 9.6 fl (7.4-10.4); Monocytes Absolute Auto 0.7 K/mm3 (0.1-0.6); Monocytes Percent Auto 9.5 % (2.6-8.5); Neutrophils Absolute Auto 5.6 K/mm3 (1.3-6.7); Neutrophils Percent Auto 73.1 % (45.5-73.1); Platelet Count Result 142 k/mm3 (150-375); Red Blood Count 4.72 M/mm3 (4.2-5.4); Red Cell Distribution Width 13.3 % (11.5-14.5); White Blood Count 7.6 K/mm3 (4.5-10.0)
[2023-04-12 13:00] LABS: Blood Urea Nitrogen 18 mg/dL (8-26); Carbon Dioxide 27 mmol/L (22-30); Chloride 102 mmol/L (98-109); Estimated Glomerular Filt Rate 49; Glucose 106 mg/dL (70-105); Ionized Calcium (POC) 1.16 mmol/L (1.11-1.31); Potassium 3.8 mmol/L (3.5-4.9); Sodium 142 mmol/L (138-146)
[2023-04-12 15:38] LABS: Alanine Aminotransferase 19 U/L (6-35); Albumin Level 4.2 g/dL (3.5-5.1); Alkaline Phosphatase 69 U/L (38-126); Anion Gap 5 mmol/L (8-16); Aspartate Amino Transferase 26 U/L (14-36); Bilirubin,Total 0.6 mg/dL (0.2-1.3); Blood Urea Nitrogen 18 mg/dL (7-17); Calcium 9.1 mg/dL (8.4-10.2); Carbon Dioxide 27 mmol/L (22-30); Chloride 104 mmol/L (98-107); Estimated Glomerular Filt Rate > 60; Glucose 107 mg/dL (65-110); Potassium 3.7 mmol/L (3.4-5.0); Sodium 136 mmol/L (137-145)
== END 2023-04-12 12:43 | disposition home or self-care (01) ==
LOC: ANHLAB 12:45
PROVIDERS: PCP Nurse Practitioner Family; Visit Provider Internal Medicine Hematology & Oncology
DX: D75.1 Secondary polycythemia (principal)
CPT/HCPCS: 36415; 80047; 80053; 85025

== ENCOUNTER → 2023-05-29 13:04 | Outpatient (CLI) | payer OTHER, SELFPAY ==
--- NOTE | ~2023-05-29 | MM_ITS ---
EXAMINATION: MM screening [place] [facility] w vinayak HISTORY: Screening mammogram TECHNIQUE: Craniocaudal and mediolateral oblique 3-D tomosynthesis images were obtained and synthetic 2-D images were generated. CAD analysis was submitted and interpreted. COMPARISON: 03/04/2022, 12/08/2020, 02/08/2019 bilateral screening mammogram examinations BREAST PARENCHYMAL COMPOSITION: The breasts are almost entirely fatty. FINDINGS: There is no evidence of suspicious mass, calcification, or architectural distortion to sugg est malignancy in either breast. There has been no suspicious interval change. IMPRESSION: 1. No mammographic evidence of malignancy. 2. Recommend routine screening mammography in one year. BI-RADS Category 1: Negative Reviewed, dictated and finalized at location A.
== END ==
PROVIDERS: PCP Nurse Practitioner Family; Visit Provider Nurse Practitioner Family
DX: Z12.31 Encounter for screening mammogram for malignant neoplasm of breast (principal)
CPT/HCPCS: 77063; 77067

== ENCOUNTER 2024-01-31 10:02 | Outpatient (CLI) | payer OTHER, SELFPAY ==
[2024-01-31 10:15] LABS: Hematocrit 48.1 % (37.0-47.0); Hemoglobin 15.7 g/dL (12.0-15.0); Mean Corpuscular HGB Conc 32.6 g/dl (32-36); Mean Corpuscular Hemoglobin 32.2 pg (26-34); Mean Corpuscular Volume 98.6 fl (80-100); Mean Platelet Volume 9.6 fl (7.4-10.4); Platelet Count Result 144 k/mm3 (150-375); Red Blood Count 4.88 M/mm3 (4.2-5.4)
== END 2024-01-31 10:03 | disposition home or self-care (01) ==
LOC: ANHLAB 10:04
PROVIDERS: PCP Nurse Practitioner Family; Visit Provider Internal Medicine Hematology & Oncology
DX: D75.1 Secondary polycythemia (principal)
CPT/HCPCS: 36415; 85027

== ENCOUNTER 2024-03-15 08:45 | Outpatient (CLI) | payer OTHER, SELFPAY ==
--- NOTE | ~2024-03-15 | CT_ITS ---
CT Scan of the Chest without Contrast: Clinical Indication: Lung cancer screening, nicotine dependence Technique: Contiguous sections were acquired throughout the chest without intravenous contrast. Dose reduction technique was used on this scan by utilizing automated exposure control and iterative recon struction technique. The dose-length product (DLP) was 156.20 mGy-cm. COMPARISON: 03/13/2023 Findings: There is no evidence of any significant mediastinal, hilar or axillary lymphadenopathy. Atherosclerot ic calcifications of the aorta are present. There is no evidence of pleural or pericardial effusion. The lungs are clear. No pulmonary nodules or infiltrates are noted. Images through the upper abdomen reveal large bilateral renal cysts. Impression: Lung RADS 1: Negative. 12 month follow-up screening CT advised. Reviewed, dictated and finalized at location . Impression: Lung RADS 1: Negative. 12 month follow-up screening CT advised.
== END 2024-03-15 08:46 | disposition home or self-care (01) ==
PROVIDERS: PCP Nurse Practitioner Family; Visit Provider Internal Medicine Hematology & Oncology
DX: Z12.2 Encounter for screening for malignant neoplasm of respiratory organs (principal); Z87.891 Personal history of nicotine dependence
CPT/HCPCS: 71271

== ENCOUNTER 2024-04-05 14:00 | Outpatient (CLI) | payer OTHER, SELFPAY ==
--- NOTE | ~2024-04-05 | CT_ITS ---
CT head without contrast Indication: Headache COMPARISON: 06/09/2020 Technique: Serial scans were obtained through the brain without the administration of contrast. Dose reduction technique was used on this scan by utilizing automated exposure control and iterative recon struction technique. The dose-length product (DLP) was 605.33 mGy-cm. Findings: There is no evidence of intracranial hemorrhage, mass lesion, or acute infarct. The ventri cles and subarachnoid spaces are dilated, consistent with mild atrophy. Extensive low attenuation reg ions are seen within the periventricular white matter bilaterally, likely representing changes from c hronic microvascular ischemic disease. There is no evidence of edema, mass effect or midline shift. The visualized paranasal sinuses and mastoid air cells are clear. Impression: No intracranial hemorrhage, mass, or acute infarct. Atrophy and chronic white matter changes, as above. Reviewed, dictated and finalized at location . Impression: No intracranial hemorrhage, mass, or acute infarct. Atrophy and chronic white matter changes, as above.
== END 2024-04-05 14:01 | disposition home or self-care (01) ==
LOC: ANHIMG 14:01
PROVIDERS: PCP Nurse Practitioner Family; Visit Provider Nurse Practitioner Family
DX: R90.82 White matter disease, unspecified (principal); G31.9 Degenerative disease of nervous system, unspecified
CPT/HCPCS: 70450

== ENCOUNTER 2024-05-25 08:31 | Outpatient (CLI) | payer OTHER, SELFPAY ==
--- NOTE | ~2024-05-25 | MR_ITS ---
EXAMINATION: MR cervical spine wo con DATE: 05/25/2024 09:53 INDICATION: Neck pain radiating to the left head. TECHNIQUE: Magnetic resonance imaging (MRI) of the cervical spine was performed without intravenous c ontrast. COMPARISON: None FINDINGS: There is 8 degrees levocurvature of cervicothoracic spine. There is 2 mm retrolisthesis of C4 on C5. Vertebral body heights are normal. There is mildly decreased disc height at C2-C3 and C3-C4 , severely decreased disc height at C4-C5 and C5-C6, and moderately decreased disc height at C6-C7. T he spinal cord signal intensity is normal. The following disc levels are specifically discussed: C2-C3: The disc is bulging. There is moderate bilateral uncovertebral joint osteoarthritis. There is mild bilateral facet joint osteoarthritis. There is mild left neural foraminal stenosis. There is no central canal stenosis. C3-C4: The disc is bulging. There is moderate right and severe left uncovertebral joint osteoarthriti s. There is severe right and moderate left facet joint osteoarthritis. There is mild right and modera te left neural foraminal stenosis. There is mild central canal stenosis. C4-C5: The disc is bulging. There is severe bilateral uncovertebral joint osteoarthritis. There is mo derate bilateral facet joint osteoarthritis. There is moderate bilateral neural foraminal stenosis. T here is mild central canal stenosis. C5-C6: The disc is bulging. There is severe bilateral uncovertebral joint osteoarthritis. There is mi ld bilateral facet joint osteoarthritis. There is moderate right and mild left neural foraminal steno sis. There is no central canal stenosis. C6-C7: The disc is bulging. There is severe bilateral uncovertebral joint osteoarthritis. There is mi ld bilateral facet joint osteoarthritis. There is mild bilateral neural foraminal stenosis. There is no central canal stenosis. C7-T1: The disc does not extend beyond the endplate margin. There is no uncovertebral joint osteoarth ritis. There is moderate right and severe left facet joint osteoarthritis. There is mild bilateral ne ural foraminal stenosis. There is no central canal stenosis. IMPRESSION: 1. Severe cervical spondylosis. Reviewed, dictated and finalized at location A.
== END 2024-05-25 08:32 | disposition home or self-care (01) ==
LOC: MICIMG 08:32
PROVIDERS: PCP Nurse Practitioner Family; Visit Provider Nurse Practitioner Family
DX: M47.812 Spondylosis without myelopathy or radiculopathy, cervical region (principal)
CPT/HCPCS: 72141

== ENCOUNTER 2024-06-24 20:13 | Emergency (ER) | payer OTHER, SELFPAY ==
[2024-06-24] VITALS (19 sets, daily range): BP systolic 110–164; BP diastolic 44–80; PULSE 94–109; RESP 14–28; O2SAT 91–98
--- NOTE | ~2024-06-24 | XR_ITS ---
EXAMINATION: XR chest 2V DATE: 06/24/2024 20:34 INDICATION: Shortness of breath TECHNIQUE: PA and lateral views of the chest were obtained. COMPARISON: Chest CT dated 03/15/2024 FINDINGS: Curved bandlike opacity at the anteromedial right lower lung zone corresponding to chronic right midd le lobe collapse on prior CT. Additional mild lingular atelectasis along side a small left pericardia l fat pad. No new airspace opacities, pulmonary edema, pleural effusion or pneumothorax. Heart size i s normal. Tortuous thoracic aorta. Mild lower thoracic dextrocurvature with moderate to severe spondy losis. IMPRESSION: 1. Chronic right middle lobe collapse. No acute cardiopulmonary disease. Reviewed, dictated and finalized at location A.
--- NOTE | 2024-06-24 20:14 | ECG_ITS ---
Test Date: 2024-06-24 20:21:23 Measurements Intervals [place] Rate: 99 P: 0 [place]: 0 QRS: 65 QRSD: 82 T: 47 QT: 310 QTc: 398 Interpretive Statements ATRIAL FIBRILLATION POSSIBLE INFERIOR MYOCARDIAL INFARCTION , PROBABLY OLD [30 ms Q WAVE IN II/aVF] No previous ECG available for comparison Electronically Signed On 06-25-2024 09:41:24 CDT by Sonam He M.D.
[2024-06-24 21:11] LABS: Basophils Percent Auto 0.1 % (0.2-1.2); Hematocrit 49.6 % (37.0-47.0); Hemoglobin 16.6 g/dL (12.0-15.0); Immature Granulocyte Absolute 0.02 K/mm3 (0.00-0.031); Immature Granulocyte Percent A 0.3 % (0-0.5); Lymphocytes Absolute Auto 0.66 K/mm3 (0.9-3.2); Lymphocytes Percent Auto 8.8 % (18.3-44.2); Mean Corpuscular HGB Conc 33.5 g/dl (32-36); Mean Corpuscular Hemoglobin 33.1 pg (26-34); Mean Corpuscular Volume 98.8 fl (80-100); Monocytes Absolute Auto 0.6 K/mm3 (0.1-0.6); Monocytes Percent Auto 7.4 % (2.6-8.5); Neutrophils Absolute Auto 6.2 K/mm3 (1.3-6.7); Neutrophils Percent Auto 83.4 % (45.5-73.1); Platelet Count Result 154 k/mm3 (150-375); Red Blood Count 5.02 M/mm3 (4.2-5.4); Red Cell Distribution Width 13.3 % (11.5-14.5); White Blood Count 7.5 K/mm3 (4.5-10.0)
--- NOTE | 2024-06-24 21:12 | ED.GENADULT ---
HPI - General Adult General Chief complaint: Shortness of Breath/Dyspnea Stated complaint: sob Time Seen by Provider: 06/24/24 21:08 History of Present Illness HPI narrative: Patient is a 73-year-old female who presents to the emergency department this evening complaining of shortness of breath for the past week. Patient admits that she has been battling an upper respiratory infection and recently finished a Z-Damion which she states feels as though did not really improve her symptoms. Patient also admits that she does have a history of COPD and wears 2 L of oxygen at night. She is currently denying any chest pain, nausea, vomiting, abdominal pain, and denies any fevers or chills at home. No additional symptoms or concerns at this time. Related Data Home Medications Medication Instructions Recorded Confirmed B Complex-Vitamin B12 1 tab-cap PO DAILY 06/09/20 04/04/22 ascorbic acid (vitamin C) 1,000 mg 1,000 mg DAILY 06/09/20 04/04/22 tablet (Vitamin C) cholecalciferol (vitamin D3) 125 125 mcg PO DAILY 06/09/20 04/04/22 mcg (5,000 unit) tablet (Vitamin D3) umeclidinium 62.5 mcg-vilanterol 1 inh inhalation 1XD 04/04/22 04/04/22 25 mcg/actuation powdr for inhalation (Anoro Ellipta) omeprazole 40 mg capsule,delayed 40 mg PO DAILY 10/24/22 release Allergies Allergy/AdvReac Type Severity Reaction Status Date / Time codeine Allergy Unknown Other Verified 06/24/24 20:30 Review of Systems Review of Systems: All systems are reviewed and are negative unless stated otherwise in the HPI. [facility] Past Medical History Medical History Anxiety AV ifeoma re-entry tachycardia On diltiazem for rate control. Patient of Dr. Ovalles. Cardiac murmur Echocardiogram in August 2019 showed normal left ventricular systolic function, normal diastolic function, mild concentric left ventricular hypertrophy, ejection fraction of 65%, and mild mitral regurgitation. Chronic bronchitis COPD (chronic obstructive pulmonary disease) Essential hypertension Obstructive sleep apnea Mild obstructive sleep apnea noted on sleep study on 05/07/2019. Obstructive sleep apnea CPAP Secondary polycythemia Stomach ulcer Tobacco use Surgical History Surgical History History of discectomy L5-S1 diskectomy. History of salpingo-oophorectomy History of tonsillectomy History of tubal ligation Family History Family History Grandparent Hypertension Chronic obstructive pulmonary disease Dementia Father Chronic obstructive pulmonary disease Cancer Social History Social History Social History: Surrogate decision maker: Servando Sanabria, . Code status: Full code. Smoking packs per day: 0.5 Smoking cigarettes per day: 10.0 Years smoked: 30 Smoking pack-years: 15.00 Smoking status: Light tobacco smoker Tobacco type: cigarettes Second hand tobacco smoke exposure: Yes Additional smoking assessment comments: Smoked up to a pack of cigarettes per day, now smoking 1/4 a pack per day. Alcohol intake: current Alcohol use details: occasionally Substance use: never Substance use type: does not use Lack of Transportation: No Lack of Food: Never True Current Housing: I Have Housing Concerned About Future Housing: No Difficulty Paying Gas/Electric Bills: No Difficulty Paying for Meds: No Currently Unemployed: No Education: High School Diploma/GED Difficulty w/ Childcare or Family Care: No Living arrangements: with family Additional living arrangements comments: Lives in [place] with her . Spiritual care concerns: No Exam Narrative: General: Alert, awake, afebrile, in no acute distress. HEENT: PERRL, no rhinorrhea, no post nasal drip, oropharynx clear. Cardiovascular: Regular rate and rhythm, no murmurs,
[2024-06-24] MEDS: ALBUTEROL SULFATE NEB 2.5 MG/3 ML INH 10 MG INHALATION (21:21)
[2024-06-24] MEDS: IPRATROPIUM BR 0.02% INH SOLN 0.5 MG/2.5 ML VIAL 2 MG INHALATION (21:22)
[2024-06-24 21:25] LABS: Alanine Aminotransferase 22 U/L (6-35); Albumin Level 4.9 g/dL (3.5-5.1); Alkaline Phosphatase 89 U/L (38-126); Anion Gap 10 mmol/L (4-12); Aspartate Amino Transferase 31 U/L (14-36); Bilirubin,Total 0.9 mg/dL (0.2-1.3); Blood Urea Nitrogen 13 mg/dL (7-17); Calcium 9.8 mg/dL (8.4-10.2); Carbon Dioxide 28 mmol/L (22-30); Chloride 102 mmol/L (98-107); Estimated CRCL calculation 53 ml/min; Estimated Glomerular Filt Rate > 60; Glucose 112 mg/dL (65-110); Potassium 3.6 mmol/L (3.4-5.0); Sodium 140 mmol/L (137-145)
[2024-06-24 21:30] LABS: Magnesium 2.1 mg/dL (1.6-2.3)
[2024-06-24] MEDS: methylPREDNISolone SOD SUCC 125 MG VIAL IV PUSH (21:30)
[2024-06-24 22:19] LABS: Influenza A QL RT-PCR Negative (Negative); Influenza B QL RT-PCR Negative (Negative); RSV RNA, RT-PCR Negative (Negative); SARS-CoV-2 RNA PCR Negative (Negative)
[2024-06-25] VITALS: PULSE 108; RESP 19; O2SAT 99
[2024-06-25 00:18] VITALS: BP 136/68; PULSE 110; RESP 18; TEMP 36.6; O2SAT 98
== END 2024-06-25 00:19 | disposition home or self-care (01) ==
PROVIDERS: Emergency Medicine; Emergency Provider Emergency Medicine; PCP Nurse Practitioner Family
DX: B34.9 Viral infection, unspecified (principal); J44.1 Chronic obstructive pulmonary disease with (acute) exacerbation; Z20.822 Contact with and (suspected) exposure to COVID-19; F41.9 Anxiety disorder, unspecified; I10 Essential (primary) hypertension; G47.30 Sleep apnea, unspecified
CPT/HCPCS: 36415; 71046; 80053; 83735; 85025; 87637; 93005; 96374; 99284; J2919

== ENCOUNTER 2024-10-22 11:55 | Outpatient (CLI) | payer OTHER, SELFPAY ==
--- NOTE | ~2024-10-22 | MM_ITS ---
EXAMINATION: MM screening [place] [facility] w vinayak HISTORY: Screening TECHNIQUE: Craniocaudal and mediolateral oblique 3-D tomosynthesis images were obtained and synthetic 2-D images were generated. CAD analysis was submitted and interpreted. COMPARISON: Comparison to multiple prior studies sequentially, with oldest reviewed study dated 09/29. BREAST PARENCHYMAL COMPOSITION: Not Dense: The breasts are almost entirely fatty. FINDINGS: There is no evidence of suspicious mass, calcification, or architectural distortion to sugg est malignancy in either breast. There has been no suspicious interval change. IMPRESSION: 1. No mammographic evidence of malignancy. 2. Recommend routine screening mammography in one year. BI-RADS Category 1: Negative Reviewed, dictated and finalized at location B. DRIVER
== END 2024-10-22 11:56 | disposition home or self-care (01) ==
LOC: MICIMG 11:56
PROVIDERS: PCP Nurse Practitioner Family; Visit Provider Nurse Practitioner Family
DX: Z12.31 Encounter for screening mammogram for malignant neoplasm of breast (principal)
CPT/HCPCS: 77063; 77067

== ENCOUNTER 2024-11-01 09:25 | Outpatient (CLI) | payer OTHER, SELFPAY ==
[2024-11-01 09:48] LABS: Basophils Percent Auto 0.2 % (0.2-1.2); Hematocrit 47.5 % (37.0-47.0); Hemoglobin 15.9 g/dL (12.0-15.0); Immature Granulocyte Absolute 0.02 K/mm3 (0.00-0.031); Immature Granulocyte Percent A 0.3 % (0-0.5); Lymphocytes Absolute Auto 1.53 K/mm3 (0.9-3.2); Lymphocytes Percent Auto 24.9 % (18.3-44.2); Mean Corpuscular HGB Conc 33.5 g/dl (32-36); Mean Corpuscular Volume 95.6 fl (80-100); Mean Platelet Volume 9.7 fl (7.4-10.4); Monocytes Absolute Auto 0.7 K/mm3 (0.1-0.6); Monocytes Percent Auto 10.6 % (2.6-8.5); Neutrophils Absolute Auto 3.9 K/mm3 (1.3-6.7); Platelet Count Result 156 k/mm3 (150-375); Red Blood Count 4.97 M/mm3 (4.2-5.4); Red Cell Distribution Width 13.8 % (11.5-14.5); White Blood Count 6.1 K/mm3 (4.5-10.0)
[2024-11-01 09:50] LABS: Blood Urea Nitrogen 12 mg/dL (8-26); Carbon Dioxide 28 mmol/L (22-30); Chloride 103 mmol/L (98-109); Estimated Glomerular Filt Rate 55; Glucose 96 mg/dL (70-105); Ionized Calcium (POC) 1.18 mmol/L (1.11-1.31); Potassium 3.8 mmol/L (3.5-4.9); Sodium 141 mmol/L (138-146)
== END 2024-11-01 09:26 | disposition home or self-care (01) ==
LOC: ANHLAB 09:26
PROVIDERS: PCP Nurse Practitioner Family; Visit Provider Internal Medicine Hematology & Oncology
DX: D75.1 Secondary polycythemia (principal)
CPT/HCPCS: 36415; 80047; 85025

== ENCOUNTER 2025-04-24 09:05 | Outpatient (CLI) | payer OTHER, SELFPAY ==
--- NOTE | ~2025-04-24 | CT_ITS ---
EXAMINATION: CT lung screening DATE: 04/24/2025 09:25 INDICATION: Nicotine dependence TECHNIQUE: Computed tomography (CT) of the chest was performed without intravenous contrast. The dose-length product was 128.14 mGy-cm. COMPARISON: CT chest 03/15/2024 and 03/13/2023 FINDINGS: No enlarged mediastinal or hilar lymph nodes. There are a few nonenlarged, nonspecific mediastinal and hilar lymph nodes similar to the prior study. Heart is not enlarged. Thoracic aorta is not aneurysmal but is partially calcified. Grossly stable bilateral renal cysts. Visualized tracheobronchial tree is patent. No pneumothorax. No pleural effusion. No focal pulmonary consolidation. No pulmonary mass. Multilevel degenerative change in the visualized spine similar to the prior study. IMPRESSION: 1. Lung-RADS category 1: Negative. Continue annual screening with noncontrast low-dose chest CT in 12 months. Reviewed, dictated and finalized at location A. IMPRESSION: 1. Lung-RADS category 1: Negative. Continue annual screening with noncontrast l ow-dose chest CT in 12 months.
== END 2025-04-24 09:06 | disposition home or self-care (01) ==
LOC: MICIMG 09:06
PROVIDERS: PCP Nurse Practitioner Family; Visit Provider Nurse Practitioner Family
DX: Z12.2 Encounter for screening for malignant neoplasm of respiratory organs (principal); Z87.891 Personal history of nicotine dependence
CPT/HCPCS: 71271